=== PATIENT | female | born 1995 | race Caucasian/White ===

== ENCOUNTER 2019-05-05 15:06 | Inpatient (IN) | payer OTHER ==
[2019-05-05 16:23] LABS: Amphetamine Screen,Urine Detected (NotDetected); Barbiturate Screen,Urine Not Detected (NotDetected); Benzodiazepines Screen,Urine Not Detected (NotDetected); Cocaine Screen,Urine Not Detected (NotDetected); Methadone Screen, Urine Not Detected (NotDetected); Opiate Screen,Urine Not Detected (NotDetected); Oxycodone Screen, Urine Not Detected (NotDetected); Phencyclidine Screen,Urine Not Detected (NotDetected); Tricyclic Antidepressant,Urine Not Detected (NotDetected); Urn Cannabinoid Scrn Detected (NotDetected)
--- NOTE | 2019-05-05 16:42 | ED ---
Psych HPI - General Chief Complaint: Psychiatric Symptoms Stated Complaint: Mental Health Time Seen by Provider: 05/05/19 15:32 Source: patient Mode of arrival: ambulatory - History of Present Illness Initial Comments: 23-year-old with history of depression, borderline personality disorder presenting today for chief complaint of suicidal ideation. Patient states that she has had increasing suicidal thoughts since January. Patient states that today was her breaking point and she caught her left forearm and thighs bilaterally. Patient denies ingesting any pills, jerking alcohol or using drugs. Patient states she voluntarily came to the emergency department for suicidal ideation. Patient denies any other plan aside from cutting herself. Patient denies homicidal ideation. Remaining review of systems negative upon arrival patient appears well signs of acute distress. - Related Data Home Medications Medication Instructions Recorded Confirmed No Known Home Medications 05/05/19 05/05/19 Allergies Allergy/AdvReac Type Severity Reaction Status Date / Time No Known Allergies Allergy Verified 05/05/19 17:29 Review of Systems ROS Statement: Those systems with pertinent positive or pertinent negative responses have been documented in the HPI. ROS Other: All systems not noted in ROS Statement are negative. Past Medical History Past Medical History: No Reported History History of Any Multi-Drug Resistant Organisms: None Reported Additional Past Surgical History / Comment(s): abdominal surgery as Past Psychological History: Anxiety, Depression Smoking Status: Current every day smoker Past Alcohol Use History: None Reported Past Drug Use History: Marijuana General Exam - General Exam Comments Initial Comments: General: The patient is awake and alert, in no distress, and does not appear acutely ill. Eye: Pupils are equal, round and reactive to light, extra-ocular movements are intact. No nystagmus. There is normal conjunctiva bilaterally. No signs of icterus. Ears, nose, mouth and throat: There are moist mucous membranes and no oral lesions. Neck: The neck is supple, there is no tenderness or JVD. Cardiovascular: There is a regular rate and rhythm. No murmur, rub or gallop is appreciated. Respiratory: Lungs are clear to auscultation, respirations are non-labored, breath sounds are equal. No wheezes, stridor, rales, or rhonchi. Gastrointestinal: Soft, non-distended, non-tender abdomen without masses or organomegaly noted. There is no rebound or guarding present. Musculoskeletal: Normal ROM, no tenderness. Strength 5/5. Sensation intact. Pulses equal bilaterally 2+. Neurological: A&O x 3. CN II-XII intact, There are no obvious motor or sensory deficits. Coordination appears grossly intact. Speech is normal. Skin: Skin is warm and dry and no rashes. Numerous superficial lesions of the left forearm, upper thighs b/l. Psychiatric: Cooperative, appropriate mood & affect, normal judgment. Limitations: no limitations Course Vital Signs 05/05/19 05/05/19 15:26 16:53 Temperature 98.9 F Pulse Rate 96 Respiratory 18 Rate Blood Pressure 115/67 O2 Sat by Pulse 94 L Oximetry Medical Decision Making - Medical Decision Making 23-year-old female presenting for suicidal ideation, superficial cutting. Patient medically cleared. Patient refused tetanus vaccination seeing she does not vaccinate. Area were cleansed. No abnormal physical exam findings aside from superficial laceration. No evidence of deep cuts. EPS recommended admission. Patient was transferred to the floor in stable condition. - Lab Data Lab Results 05/05/19 05/05/19 05/05/19 Range/Units 15:57 15:57 15:57 Urine Color Yellow Urine Appearance Turbid H (Clear) Urine pH 5.5 (5.0-8.0) Ur Specific [place] 1.029 (1.001-1.035) Urine Protein 1+ H (Negative) Urine Glucose (UA) Trace H (Negative) Urine Ketones 4+ H (Negative) Urine Blood Moderate H (Negative) Urine Nitrite Negative (Negative) Urine Bilirubin Negative (Negative) Urine Urobilinogen 2.0 (<2.0) mg/dL Ur Leukocyte Esterase Small H (Negative) Urine RBC 10 H (0-5) /hpf Urine WBC 10 H (0-5) /hpf Ur Squamous Epith Cells 5 H (0-4) /hpf Amorphous Sediment Few H (None) /hpf Urine Mucus Many H (None) /hpf Urine HCG, Qual Not Detected (Not Detectd) Urine Opiates Screen Not Detected (NotDetected) Ur Oxycodone Screen Not Detected (NotDetected) Urine Methadone Screen Not Detected (NotDetected) Ur Propoxyphene Screen Not Detected (NotDetected) Ur Barbiturates Screen Not Detected (NotDetected) U Tricyclic Antidepress Not Detected (NotDetected) Ur Phencyclidine Scrn Not Detected (NotDetected) Ur Amphetamines Screen Detected H (NotDetected) U Methamphetamines Scrn Not Detected (NotDetected) U Benzodiazepines Scrn Not Detected (NotDetected) Urine Cocaine Screen Not Detected (NotDetected) U Marijuana (THC) Screen Detected H (NotDetected) Disposition Clinical Impression: Suicidal ideation, Depression Disposition: ADMITTED IP TO THIS [facility] Condition: Serious Is patient prescribed a controlled substance at d/c from ED?: No Time of Disposition: 00:01 Decision to Admit Reason: Admit from EC Decision Date: 05/06/19 Decision Time: 16:00
[2019-05-05 17:06] LABS: Amorphous Sediment,Urine Few /hpf; Appearance,Urine Turbid (Clear); Bilirubin,Urine Negative (Negative); Blood,Urine Moderate (Negative); Color,Urine Yellow; Glucose,Urine (UA) Trace (Negative); Ketones,Urine 4+ (Negative); Leukocyte Esterase,Urine Small (Negative); Mucus,Urine Many /hpf; Nitrite,Urine Negative (Negative); PH, Urine 5.5 (5.0-8.0); Protein,Urine 1+ (Negative); RBC,Urine 10 /hpf (0-5); Specific Gravity,Urine 1.029 (1.001-1.035); Squamous Epithelial Cell,Urine 5 /hpf (0-4); WBC,Urine 10 /hpf (0-5)
[2019-05-05] MEDS ORDERED: LORazepam 1 MG TAB PO PRN (18:00)
[2019-05-05] MEDS ORDERED: MAG HYDROX/AL HYDROX/SIMETH 30 ML CUP PO PRN (18:00)
[2019-05-05] MEDS ORDERED: MAGNESIUM HYDROXIDE 2,400 MG/10 ML CUP PO PRN (18:00)
[2019-05-05] MEDS ORDERED: ACETAMINOPHEN TAB 325 MG TAB PO PRN (18:00)
[2019-05-05] MEDS ORDERED: NICOTINE 14MG/24HR PATCH TRANSDERM STA (20:29)
[2019-05-06] MEDS: NICOTINE 14MG/24HR PATCH TRANSDERM SCH (08:26)
[2019-05-06 08:41] LABS: ALT 15 U/L (9-52); AST 12 U/L (14-36); African American GFR (CKD) >90 (>60 ml/min/1.73 sqM); Albumin 4.5 g/dL (3.5-5.0); Alkaline Phosphatase 62 U/L (38-126); Anion Gap 12 mmol/L; Blood Urea Nitrogen 12 mg/dL (7-17); Calcium 9.5 mg/dL (8.4-10.2); Carbon Dioxide 25 mmol/L (22-30); Chloride 105 mmol/L (98-107); Cholesterol 125 mg/dL (<200); Glucose 109 mg/dL (74-99); HDL Cholesterol 52 mg/dL (40-60); LDL Cholesterol,Calculated 63 mg/dL (0-99); Potassium 3.4 mmol/L (3.5-5.1); Sodium 142 mmol/L (137-145); Total Bilirubin 0.8 mg/dL (0.2-1.3); Total Protein 7.2 g/dL (6.3-8.2); Triglycerides 50 mg/dL (<150)
[2019-05-06 08:52] LABS: Basophils # (A) 0.1 k/uL (0-0.2); Basophils % (A) 1 %; Eosinophils # (A) 0.5 k/uL (0-0.7); Eosinophils % (A) 5 %; HCT 41.7 % (34.0-46.0); HGB 13.1 gm/dL (11.4-16.0); Lymphocytes # (A) 2.3 k/uL (1.0-4.8); Lymphocytes % (A) 23 %; MCH 26.7 pg (25.0-35.0); MCHC 31.4 g/dL (31.0-37.0); MCV 85.1 fL (80.0-100.0); Mean Platelet Volume 7.2; Monocytes # (A) 0.4 k/uL (0-1.0); Monocytes % (A) 4 %; Neutrophils # (A) 6.7 k/uL (1.3-7.7); Neutrophils % (A) 67 %; Platelet Count 273 k/uL (150-450); RDW 14.7 % (11.5-15.5); WBC 10.1 k/uL (3.8-10.6)
[2019-05-06] MEDS: ARIPiprazole 5 MG TAB PO SCH (10:25)
[2019-05-06] MEDS: FLUoxetine HCL 20 MG CAP PO SCH (10:25)
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
--- NOTE | 2019-05-06 19:45 | P.MDCNMH ---
History of Present Illness H&P Date: 05/06/19 Chief Complaint: suicide ideation 23 year old female with history of endometriosis, depression, borderline personality Patient presented to the hospital due to suicidal ideation. Patient has self- inflicted wounds superficial though, over bilateral thighs and left forearm. As she was planning to cut herself. Otherwise patient denies any chest pain trouble breathing coughing shortness of breath fevers or chills denies any abdominal pain nausea or vomiting at this time. She admits to smoking cigarettes and medical marijuana but denies any other drugs. However she tested positive for amphetamine in the urine. Review of Systems Pertinent positives as noted in HPI. All other systems were reviewed and are negative Past Medical History Past Medical History: No Reported History History of Any Multi-Drug Resistant Organisms: None Reported Additional Past Surgical History / Comment(s): abdominal surgery as Past Psychological History: Anxiety, Depression Smoking Status: Current every day smoker Past Alcohol Use History: None Reported Past Drug Use History: Marijuana Medications and Allergies Home Medications Medication Instructions Recorded Confirmed Type No Known Home Medications 05/05/19 05/05/19 History Allergies Allergy/AdvReac Type Severity Reaction Status Date / Time No Known Allergies Allergy Verified 05/05/19 17:29 Physical Exam Vitals: Vital Signs Temp Pulse Pulse Resp BP BP Pulse Ox 05/06/19 06:23 98.5 F 83 16 111/72 05/05/19 18:32 97.8 F 78 16 105/71 99 05/05/19 16:53 115/67 05/05/19 15:26 98.9 F 96 18 94 L Intake and Output 05/05/19 05/06/19 05/06/19 22:59 06:59 14:59 Other: Weight 52.189 kg Constitutional: No acute distress, conversant, pleasant Eyes: Anicteric sclerae, moist conjunctiva, no lid-lag Pupils equal round reactive to light ENMT: NC/AT Oropharynx clear, no erythema, exudates Neck: Supple, FROM, no masses, or JVD No carotid bruits No thyromegaly Lungs: Clear to auscultation Clear to percussion Normal respiratory effort, no accessory muscle use Cardiovascular: Heart regular in rate and rhythm, No murmurs, gallops, or rubs No peripheral edema Abdominal: Soft Nontender, no guarding, rebound or rigidity Abdomen moving with respiration Normoactive bowel sounds No hepatomegaly, No splenomegaly No palpable mass No abdominal wall hernia noted Skin: Normal temperature, tone, texture, turgor No induration No subcutaneous nodules No rash, lesions multiple superficial abrasions as below Extremities: left forearm with superficial abrasions bilateral thighs with superficial abrasions No digital cyanosis No clubbing Pedal pulses intact and symmetrical Radial pulses intact and symmetrical No calf tenderness Psychiatric: Alert and oriented to person, place and time depressed affect fair judgment Neuro Muscles Strength 5/5 in all 4 extremities Sensation to light touch grossly present throughout Cranial nerves II-XII grossly intact No focal sensory deficits Lymphatics: no palpable cervical or supraclavicular , or inguinal lymph nodes Cranial Nerve Examination - Cranial Nerves Cranial Nerve II- Optic: Intact Cranial Nerve III- Oculomotor: Intact Cranial Nerve IV- Trochlear: Intact Cranial Nerve V- Trigeminal: Intact Cranial Nerve - Abducens: Intact Cranial Nerve VII- Facial: Intact Cranial Nerve VIII- Auditory: Intact Cranial Nerve IX- Glossopharyngeal: Intact Cranial Nerve X- Vagus: Intact Cranial Nerve XI- Accessory: Intact Cranial Nerve XII- Hypoglossal: Intact Results CBC & Chem 7: 05/06/19 08:14 05/06/19 08:14 Labs: Abnormal Lab Results - Last 24 Hours (Table) 05/05/19 05/05/19 Range/Units 15:57 15:57 Urine Appearance Turbid H (Clear) Urine Protein 1+ H (Negative) Urine Glucose (UA) Trace H (Negative) Urine Ketones 4+ H (Negative) Urine Blood Moderate H (Negative) Ur Leukocyte Esterase Small H (Negative) Urine RBC 10 H (0-5) /hpf Urine WBC 10 H (0-5) /hpf Ur Squamous Epith Cells 5 H (0-4) /hpf Amorphous Sediment Few H (None) /hpf Urine Mucus Many H (None) /hpf Ur Amphetamines Screen Detected H (NotDetected) U Marijuana (THC) Screen Detected H (NotDetected) Assessment and Plan Assessment: 23 year old female with history of borderline personality, anxiety, and depression , admitted due to suicidal ideation, medicine consulted for medical evaluation , patient has no active medical issues at this time. Plan: depression with suicidal ideation management per psych polysubstance abuse amphetamine marijuana smoking tobacco superficial abrasions local wound care denies any alcohol abuse low risk for DVT , patient ambulatory Thank you for allowing us to participate in the care of this patient. We will follow peripherally. Do not hesitate to contact us with questions. Someone can be reached from the [facility] hospitalist group at all hours of the day at [phone].
[2019-05-07] MEDS: NICOTINE 14MG/24HR PATCH TRANSDERM SCH (09:11)
[2019-05-07] MEDS: ARIPiprazole 5 MG TAB PO SCH (09:12)
[2019-05-07] MEDS: FLUoxetine HCL 20 MG CAP PO SCH (09:12)
[2019-05-07 10:38] LABS: Hemoglobin A1C 5.4 % (4.0-6.0)
--- NOTE | 2019-05-07 11:33 | P.PN ---
Progress Note - Text Progress Note Date: 05/07/19 Interval History: Patient is a 23-year-old female who was seen today. She was admitted due to cutting and suicidal ideation. She states that she was cutting because of feeling angry and did punish herself. She states that she had been in counseling in October of this year at [facility] but was religiously based and she did not like it. She states that she's been feeling increasingly depressed with decreased motivation, not caring for her activities of daily living, sleeping too much and has no energy. She states that she was not taking care of her [id number] baby and was leaving it up to her boyfriend to do all of the care. She states that she currently is no longer feeling suicidal or have any urges to cut today and states that her thinking has improved. Mental Status: Appearance/Attitude: Patient is neatly and appropriately dressed, makes eye contact and was cooperative. Behavior: Patient does not display any psychomotor agitation or retardation. Speech/Language: Patient's speech is spontaneous of normal volume and rhythm and she is coherent Thought Process: Patient is goal-directed there is no evidence of loose association or flight of ideas Thought Content: Patient denies any auditory or visual hallucinations and no delusions or paranoid ideation or elicited. Patient states that her thinking is much clearer, she slept about 5 hours last night and her appetite has improved. She states that she is feeling a little more positive about things and reports no side effects from the medication Suicidal/Homicidal Ideation: Patient denies any current suicidal or homicidal ideation Sensorium/Cognition: Patient is alert and oriented to person, place, and time and her recent and remote memory grossly intact Mood/Affect: Patient's mood is slightly depressed her affect is slightly blunted Insight/Judgment: Patient's insight and judgment are fair Assessment: Patient reports that she had been in counseling but was religiously based and she stopped in October of this year. Patient states that she cuts because she is angry to punish herself. She states that she had been feeling increasingly depressed at home and not caring for her activities of daily living. She states that she currently is no longer feeling suicidal or having any urges to cut. She slept for about 5 hours last night and has been attending groups and activities. She states that her thinking has improved and she is feeling less depressed. Plan: Patient will continue on Prozac 20 mg and Abilify 5 mg daily to target her mood. Patient continues to require hospitalization to further stabilize her mood.
[2019-05-08 07:03] VITALS: RESP 16
[2019-05-08] MEDS: NICOTINE 14MG/24HR PATCH TRANSDERM SCH (09:13)
[2019-05-08] MEDS: ARIPiprazole 5 MG TAB PO SCH (09:14)
[2019-05-08] MEDS: FLUoxetine HCL 20 MG CAP PO SCH (09:14)
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
[2019-05-09] MEDS: FLUoxetine HCL 20 MG CAP PO SCH (08:37)
[2019-05-09] MEDS: NICOTINE 14MG/24HR PATCH TRANSDERM SCH (08:37)
[2019-05-09] MEDS: ARIPiprazole 5 MG TAB PO SCH (08:37)
[2019-05-09] MEDS: hydrOXYzine PAMOATE 25 MG CAP PO PRN (09:36)
--- NOTE | 2019-05-09 11:50 | P.PN ---
Progress Note - Text Progress Note Date: 05/09/19 Interval History: Patient is a 23-year-old female who was seen today and she reports being bothered by one of the other patients on the unit. She sought out staff and states that they have assisted her. Patient requested something for anxiety because she was quite upset. Patient and I discussed her relationship with the father of her child and the issues that they have, they broke up he is living with his parents and the child and had had another relationship after they broke up in January. Patient and I discussed her feelings regarding the of her father, her partner discussing confidential issues with his family, posting things on Facebook. Patient reports no side effects from the medication and feels that they have been effective for her. Mental Status: Appearance/Attitude: Patient is neatly and appropriately dressed, makes eye contact and was cooperative Behavior: Patient does not display any psychomotor agitation or retardation. Speech/Language: Patient's speech is spontaneous of normal volume and rhythm and she is coherent Thought Process: Patient is goal-directed there is no evidence of loose association or flight of ideas Thought Content: Patient denies any auditory or visual hallucinations and no delusions or paranoid ideation or elicited. Patient states that she was upset earlier today and is quite anxious regarding interactions with another peer on the unit. Patient discussed her concerns about her relationship with her boyfriend due to his discussing confidential information with his family and hers, posting on Facebook's text that she had sent to him. Patient states that they have discussed counseling to improve their relationship, he blames her for his having had another relationship after they in January. Patient states that her sleep is good and she is eating well. Suicidal/Homicidal Ideation: Patient denies any current suicidal or homicidal ideation Sensorium/Cognition: Patient is alert and oriented to person, place, and time and her recent and remote memory are grossly intact Mood/Affect: Patient's mood is pleasant, slightly anxious this morning and her affect is appropriate Insight/Judgment: Patient's insight and judgment are fair Assessment: Patient reports getting upset with another patient who is intrusive, she states that she somewhat anxious this morning. She denied a long discussion regarding traumas from her childhood, the of her father as well as issues with her partner. Patient states that she will be returning home to live on her own and that her partner lives with his parents and their child. Patient discussed returning to work. She reports no side effects from the medication and states that she's been attending groups and activities. Patient reports that she is doing much better, no longer feeling as depressed, has more energy is getting up in the morning and has motivation to do things. Plan: Patient will continue on Prozac 20 mg in the morning and Abilify 5 mg daily to target her depressive symptoms and will begin Vistaril 25 mg 3 times a day as needed for anxiety. Patient and I discussed discharge tomorrow and she is agreeable to this plan and is interested in outpatient counseling and follow- up care after her release.
[2019-05-09 13:59] VITALS: BMI 22.4
[2019-05-10 06:20] VITALS: BP 107/75; PULSE 75; TEMP 97.8
[2019-05-10] MEDS: FLUoxetine HCL 20 MG CAP PO SCH (08:07)
[2019-05-10] MEDS: ARIPiprazole 5 MG TAB PO SCH (08:07)
[2019-05-10] MEDS: NICOTINE 14MG/24HR PATCH TRANSDERM SCH (09:00)
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
[2019-05-10] MEDS: hydrOXYzine PAMOATE 25 MG CAP PO PRN (18:32)
== END 2019-05-10 19:45 | disposition home or self-care (01) | DRG 885 ==
LOC: EC 15:06 → 3MHU 17:58
PROVIDERS: ADMIT Psychiatry & Neurology Psychiatry; ATTEND Psychiatry & Neurology Psychiatry
DX: F33.2 Major depressive disorder, recurrent severe without psychotic features (principal); F43.10 Post-traumatic stress disorder, unspecified; F12.20 Cannabis dependence, uncomplicated; F41.0 Panic disorder [episodic paroxysmal anxiety]; F60.3 Borderline personality disorder; Z62.810 Personal history of physical and sexual abuse in childhood; F17.200 Nicotine dependence, unspecified, uncomplicated; Z28.21 Immunization not carried out because of patient refusal; Z91.410 Personal history of adult physical and sexual abuse
CPT/HCPCS: 80053; 80061; 80306; 81001; 81025; 82075; 83036; 84443; 85025; 99285

== ENCOUNTER 2019-11-23 17:36 | Inpatient (IN) | payer BC, MEDICAID, OTHER ==
[2019-11-23 18:34] LABS: Basophils # (A) 0.1 k/uL (0-0.2); Basophils % (A) 1 %; Eosinophils # (A) 0.2 k/uL (0-0.7); Eosinophils % (A) 3 %; HGB 13.5 gm/dL (11.4-16.0); Lymphocytes # (A) 1.9 k/uL (1.0-4.8); Lymphocytes % (A) 23 %; MCH 28.3 pg (25.0-35.0); MCV 85.8 fL (80.0-100.0); Monocytes # (A) 0.3 k/uL (0-1.0); Monocytes % (A) 4 %; Neutrophils # (A) 5.6 k/uL (1.3-7.7); Neutrophils % (A) 68 %; Platelet Count 269 k/uL (150-450); RBC 4.78 m/uL (3.80-5.40); RDW 13.2 % (11.5-15.5); WBC 8.3 k/uL (3.8-10.6)
[2019-11-23 18:43] LABS: ALT 12 U/L (4-34); AST 17 U/L (14-36); Acetaminophen <10.0 ug/mL; African American GFR (CKD) >90 (>60 ml/min/1.73 sqM); Albumin 4.5 g/dL (3.5-5.0); Alcohol <10 mg/dL; Alkaline Phosphatase 66 U/L (38-126); Anion Gap 11 mmol/L; Blood Urea Nitrogen 8 mg/dL (7-17); Calcium 9.4 mg/dL (8.4-10.2); Carbon Dioxide 22 mmol/L (22-30); Chloride 107 mmol/L (98-107); Glucose 102 mg/dL (74-99); Non-African American GFR(CKD) >90 (>60 ml/min/1.73 sqM); Salicylate <1.0 mg/dL; Sodium 140 mmol/L (137-145); Total Bilirubin 0.8 mg/dL (0.2-1.3); Total Protein 7.5 g/dL (6.3-8.2)
[2019-11-23 18:56] LABS: Amphetamine Screen,Urine Not Detected (NotDetected); Barbiturate Screen,Urine Not Detected (NotDetected); Benzodiazepines Screen,Urine Not Detected (NotDetected); Cocaine Screen,Urine Detected (NotDetected); Methadone Screen, Urine Not Detected (NotDetected); Opiate Screen,Urine Not Detected (NotDetected); Oxycodone Screen, Urine Not Detected (NotDetected); Phencyclidine Screen,Urine Not Detected (NotDetected); Tricyclic Antidepressant,Urine Not Detected (NotDetected); Urn Cannabinoid Scrn Detected (NotDetected)
--- NOTE | 2019-11-23 19:06 | ED ---
Overdose HPI - General Chief Complaint: Overdose Stated Complaint: Mental health Time Seen by Provider: 11/23/19 17:45 Source: patient, police, EMS Mode of arrival: EMS Limitations: no limitations - History of Present Illness Initial Comments: Patient presents after an overdose today. She believes she was trying to harm herself. She has no chest or belly or back pain. She had some nausea and vomiting after the overdose, but at this time has no symptoms. She has no weakness, headache, lightheadedness or dizziness. - Related Data Previous Rx's Medication Instructions Recorded ARIPiprazole [Abilify] 5 mg PO DAILY #14 tab 05/10/19 FLUoxetine HCL [PROzac] 20 mg PO DAILY #14 cap 05/10/19 hydrOXYzine PAMOATE [Vistaril] 25 mg PO BID PRN #10 cap 05/10/19 Allergies Allergy/AdvReac Type Severity Reaction Status Date / Time No Known Allergies Allergy Verified 11/23/19 17:42 Review of Systems ROS Statement: Those systems with pertinent positive or pertinent negative responses have been documented in the HPI. ROS Other: All systems not noted in ROS Statement are negative. Past Medical History Past Medical History: Asthma History of Any Multi-Drug Resistant Organisms: None Reported Additional Past Surgical History / Comment(s): abdominal surgery as Past Psychological History: Anxiety, Depression Smoking Status: Current every day smoker Past Alcohol Use History: None Reported Past Drug Use History: Marijuana General Exam Limitations: no limitations General appearance: alert, in no apparent distress Head exam: Present: atraumatic, normocephalic, normal inspection Eye exam: Present: normal appearance, PERRL, EOMI. Absent: scleral icterus, conjunctival injection, periorbital swelling ENT exam: Present: normal exam, mucous membranes moist Neck exam: Present: normal inspection. Absent: tenderness, meningismus, lymphadenopathy Respiratory exam: Present: normal lung sounds bilaterally. Absent: respiratory distress, wheezes, rales, rhonchi, stridor Cardiovascular Exam: Present: regular rate, normal rhythm, normal heart sounds. Absent: systolic murmur, diastolic murmur, rubs, gallop, clicks GI/Abdominal exam: Present: soft, normal bowel sounds. Absent: distended, tenderness, guarding, rebound, rigid Extremities exam: Present: normal inspection, full ROM, normal capillary refill. Absent: tenderness, pedal edema, joint swelling, calf tenderness Back exam: Present: normal inspection Neurological exam: Present: alert, oriented X3, CN II-XII intact Psychiatric exam: Present: normal affect, normal mood Skin exam: Present: warm, dry, intact, normal color. Absent: rash Course Vital Signs 11/23/19 17:40 Temperature 98.4 F Pulse Rate 112 H Respiratory 20 Rate Blood Pressure 131/70 O2 Sat by Pulse 98 Oximetry Medical Decision Making - Medical Decision Making Patient presents after an intentional overdose, with the intent for self-harm. Patient is medically clear. She will be admitted to psychiatry. - Lab Data Result diagrams: 11/23/19 17:45 11/23/19 17:45 Lab Results 11/23/19 11/23/19 11/23/19 Range/Units 17:45 17:45 17:45 WBC 8.3 (3.8-10.6) k/uL RBC 4.78 (3.80-5.40) m/uL Hgb 13.5 (11.4-16.0) gm/dL Hct 41.0 (34.0-46.0) % MCV 85.8 (80.0-100.0) fL MCH 28.3 (25.0-35.0) pg MCHC 33.0 (31.0-37.0) g/dL RDW 13.2 (11.5-15.5) % Plt Count 269 (150-450) k/uL Neutrophils % 68 % Lymphocytes % 23 % Monocytes % 4 % Eosinophils % 3 % Basophils % 1 % Neutrophils # 5.6 (1.3-7.7) k/uL Lymphocytes # 1.9 (1.0-4.8) k/uL Monocytes # 0.3 (0-1.0) k/uL Eosinophils # 0.2 (0-0.7) k/uL Basophils # 0.1 (0-0.2) k/uL Sodium 140 (137-145) mmol/L Potassium 4.0 (3.5-5.1) mmol/L Chloride 107 (98-107) mmol/L Carbon Dioxide 22 (22-30) mmol/L Anion Gap 11 mmol/L BUN 8 (7-17) mg/dL Creatinine 0.68 (0.52-1.04) mg/dL Est GFR (CKD-EPI)AfAm >90 (>60 ml/min/1.73 sqM) Est GFR (CKD-EPI)NonAf >90 (>60 ml/min/1.73 sqM) Glucose 102 H (74-99) mg/dL Calcium 9.4 (8.4-10.2) mg/dL Total Bilirubin 0.8 (0.2-1.3) mg/dL AST 17 (14-36) U/L ALT 12 (4-34) U/L Alkaline Phosphatase 66 (38-126) U/L Total Protein 7.5 (6.3-8.2) g/dL Albumin 4.5 (3.5-5.0) g/dL Urine HCG, Qual (Not Detectd) Salicylates <1.0 mg/dL Urine Opiates Screen Not Detected (NotDetected) Ur Oxycodone Screen Not Detected (NotDetected) Urine Methadone Screen Not Detected (NotDetected) Ur Propoxyphene Screen Not Detected (NotDetected) Acetaminophen <10.0 ug/mL Ur Barbiturates Screen Not Detected (NotDetected) U Tricyclic Antidepress Not Detected (NotDetected) Ur Phencyclidine Scrn Not Detected (NotDetected) Ur Amphetamines Screen Not Detected (NotDetected) U Methamphetamines Scrn Not Detected (NotDetected) U Benzodiazepines Scrn Not Detected (NotDetected) Urine Cocaine Screen Detected H (NotDetected) U Marijuana (THC) Screen Detected H (NotDetected) Serum Alcohol <10 mg/dL 11/23/19 Range/Units 17:45 WBC (3.8-10.6) k/uL RBC (3.80-5.40) m/uL Hgb (11.4-16.0) gm/dL Hct (34.0-46.0) % MCV (80.0-100.0) fL MCH (25.0-35.0) pg MCHC (31.0-37.0) g/dL RDW (11.5-15.5) % Plt Count (150-450) k/uL Neutrophils % % Lymphocytes % % Monocytes % % Eosinophils % % Basophils % % Neutrophils # (1.3-7.7) k/uL Lymphocytes # (1.0-4.8) k/uL Monocytes # (0-1.0) k/uL Eosinophils # (0-0.7) k/uL Basophils # (0-0.2) k/uL Sodium (137-145) mmol/L Potassium (3.5-5.1) mmol/L Chloride (98-107) mmol/L Carbon Dioxide (22-30) mmol/L Anion Gap mmol/L BUN (7-17) mg/dL Creatinine (0.52-1.04) mg/dL Est GFR (CKD-EPI)AfAm (>60 ml/min/1.73 sqM) Est GFR (CKD-EPI)NonAf (>60 ml/min/1.73 sqM) Glucose (74-99) mg/dL Calcium (8.4-10.2) mg/dL Total Bilirubin (0.2-1.3) mg/dL AST (14-36) U/L ALT (4-34) U/L Alkaline Phosphatase (38-126) U/L Total Protein (6.3-8.2) g/dL Albumin (3.5-5.0) g/dL Urine HCG, Qual Not Detected (Not Detectd) Salicylates mg/dL Urine Opiates Screen (NotDetected) Ur Oxycodone Screen (NotDetected) Urine Methadone Screen (NotDetected) Ur Propoxyphene Screen (NotDetected) Acetaminophen ug/mL Ur Barbiturates Screen (NotDetected) U Tricyclic Antidepress (NotDetected) Ur Phencyclidine Scrn (NotDetected) Ur Amphetamines Screen (NotDetected) U Methamphetamines Scrn (NotDetected) U Benzodiazepines Scrn (NotDetected) Urine Cocaine Screen (NotDetected) U Marijuana (THC) Screen (NotDetected) Serum Alcohol mg/dL 11/23/19 19:05 twelve-lead EKG shows ventricular rate 77 bpm, normal NC interval and QRS complexes, normal QT and QTC, no ST elevation or depression, interpreted by me as normal sinus rhythm. Disposition Clinical Impression: Drug overdose Disposition: TRANSFER TO PSYCH HOSP/UNIT Condition: Fair Referrals: Lisbeth Olivares MD [Primary Care Provider] - 1-2 days
[2019-11-23] MEDS ORDERED: MAG HYDROX/AL HYDROX/SIMETH 30 ML CUP PO PRN (19:54)
[2019-11-23] MEDS ORDERED: MAGNESIUM HYDROXIDE 2,400 MG/10 ML CUP PO PRN (19:54)
[2019-11-23] MEDS ORDERED: ZIPRASIDONE 20 MG VIAL IM PRN (19:54)
[2019-11-23] MEDS ORDERED: ACETAMINOPHEN TAB 325 MG TAB PO PRN (19:54)
[2019-11-23] MEDS: LORazepam 1 MG TAB PO SCH (22:37)
--- NOTE | 2019-11-23 23:02 | P.HPMEDMHU ---
History of Present Illness H&P Date: 11/23/19 Chief Complaint: MHU HPI The patient is a 24-year-old female with a past medical history of asthma and recurrent smoker who is admitted to the mental health unit. Apparently the patient was brought here by local PD for intentional overdosing with Vistaril approximately 5 tabs unknown dose and Abilify approximately 7 tabs unknown dose. Despite EPS records suggesting that the patient was suicidal, she is denying trying to hurt herself. The patient is regretful and saying that she took the medications in attempts to get her emotions under control. The patient denies any wheezing or shortness of breath she does report a smoker's cough, she thinks that her breathing is at baseline and declines suggestion of inhaler. The patient's UDS was positive for cocaine and THC. The patient denies any somatic complaints Review of Systems Pertinent positives per HPI all other review of systems otherwise negative Past Medical History Past Medical History: Asthma History of Any Multi-Drug Resistant Organisms: None Reported Additional Past Surgical History / Comment(s): abdominal surgery as infant Past Psychological History: Anxiety, Depression Smoking Status: Current every day smoker Past Alcohol Use History: None Reported Past Drug Use History: Marijuana Medications and Allergies Home Medications Medication Instructions Recorded Confirmed Type No Known Home Medications 11/23/19 11/23/19 History Allergies Allergy/AdvReac Type Severity Reaction Status Date / Time No Known Allergies Allergy Verified 11/23/19 19:18 Physical Exam Vitals: Vital Signs Temp Pulse Resp BP Pulse Ox 11/23/19 20:04 97.9 F 93 20 122/74 98 11/23/19 19:00 98.9 F 73 17 113/83 97 11/23/19 17:40 98.4 F 112 H 20 131/70 98 Intake and Output 11/23/19 11/23/19 11/23/19 06:59 14:59 22:59 Other: Weight 54.431 kg Constitutional: No acute distress, conversant, pleasant Eyes: Anicteric sclerae, moist conjunctiva, no lid-lag, PERRLA ENMT: NC/AT,Oropharynx clear, no erythema, exudates Neck:Supple, FROM, no masses, or JVD, No carotid bruits; No thyromegaly Lungs: Clear to auscultation, Clear to percussion, Normal respiratory effort, no accessory muscle use Cardiovascular: Heart regular in rate and rhythm, No murmurs, gallops, or rubs no peripheral edema Abdominal: Soft Nontender, nom distended, no guarding, no rebound or rigidity, Normoactive bowel sounds No hepatomegaly, No splenomegaly, No palpable mass No abdominal wall hernia noted Skin: Normal temperature, tone, texture, turgor, No induration No subcutaneous nodules, No rash, lesions, No ulcers Extremities:No digital cyanosis No clubbing, Pedal pulses intact and symmetrical Radial pulses intact and symmetrical Normal gait and station, No calf tenderness Psychiatric: Alert and oriented to person, place and time, Appropriate affect Intact judgement Neuro: Muscles Strength 5/5 in all 4 extremities, Sensation to light touch grossly present throughout, Cranial nerves II-XII grossly intact. No focal sensory deficits - Constitutional General appearance: no acute distress - EENT Eyes: EOMI - Neck Neck: no lymphadenopathy - Gastrointestinal General gastrointestinal: no organomegaly, soft, no tenderness Cranial Nerve Examination - Cranial Nerves Cranial Nerve II- Optic: Intact Cranial Nerve III- Oculomotor: Intact Cranial Nerve IV- Trochlear: Intact Cranial Nerve V- Trigeminal: Intact Cranial Nerve - Abducens: Intact Cranial Nerve VII- Facial: Intact Cranial Nerve VIII- Auditory: Intact Cranial Nerve IX- Glossopharyngeal: Intact Cranial Nerve X- Vagus: Intact Cranial Nerve XI- Accessory: Intact Cranial Nerve XII- Hypoglossal: Intact Results CBC & Chem 7: 11/23/19 17:45 11/23/19 17:45 Labs: Abnormal Lab Results - Last 24 Hours (Table) 11/23/19 11/23/19 Range/Units 17:45 17:45 Glucose 102 H (74-99) mg/dL Urine Cocaine Screen Detected H (NotDetected) U Marijuana (THC) Screen Detected H (NotDetected) Assessment and Plan Assessment: Asthma without exacerbation Depression and anxiety Suicidal ideation Attempted overdose Plan: Patient is admitted to the acute inpatient psychiatry team will defer to them regarding ongoing psychotropic therapy and coordination with cognitive behavioral therapy. Patient is medically stable and no acute asthma exacerbation has no complaints. We'll plan to sign off today. For further questions please to not hesitate contact the sound inpatient team.
[2019-11-24] MEDS: LORazepam 1 MG TAB PO SCH (09:37)
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
[2019-11-24] MEDS: DULoxetine HCL 30 MG CAPSULE.DR PO SCH (12:20)
[2019-11-25] MEDS: DULoxetine HCL 30 MG CAPSULE.DR PO SCH (09:15)
--- NOTE | 2019-11-25 13:42 | P.PN ---
Progress Note - Text Interval history: The patient is found in her room she follows me to an interview room. She indicates that she was acutely nauseous during lunch and vomited. She thinks is related to an ongoing abdominal issue that she has had. We discussed that it could be related to the Cymbalta as an initial side effect. She is willing to continue the medication and give it more time. She did have a visit from a friend last evening. She has not yet spoken her boyfriend. She states she doesn't know sure where she is going from here. She still has some hopelessness thinking. Sleep is stable. Mental status exam: The patient is alert she is dressed in her own clothing eye contact is appropriate speech is fluent spontaneous nonpressured. She has appropriate eye contact. She endorses a mood that is still depressed she has some anxiety. She reports no acute suicidal ideation as she feels safe in the hospital. She reports no homicidal ideation intent or plan. There is no report or evidence of psychosis. She does not appear hypomanic or manic. She demonstrates no verbal or physical aggressiveness insight and judgment grossly i ntact. She remains oriented to person place and date. Plan: The patient will continue on the Cymbalta we will monitor for any ongoing nausea. If that persists we will consider change in the medication. She is encouraged to continue participating in the milieu. Vital signs reviewed.
[2019-11-25] MEDS: LORazepam 1 MG TAB PO PRN (21:09)
[2019-11-26] MEDS: DULoxetine HCL 30 MG CAPSULE.DR PO SCH (12:15)
--- NOTE | 2019-11-26 13:01 | P.PN ---
Progress Note - Text Progress Note Date: 11/26/19 Interval History: Patient was seen wandering the hallways and was agreeable to speak to headline writer in the office. Patient states that her nausea has been improving and claims that she is able to tolerate food now. She states that the medication has been helping her with her mood and also the neuropathic pain that she was experiencing. Patient claims that she still feels mildly depressed however it is gradually improving. She states that she is overwhelmed with multiple stressors prior to coming into the hospital. She spoke about her relationship with her ex-boyfriend and also her home situation. She states that she's been going to groups to work on her coping skills and also has been having fair energy throughout the day. At this time patient denies any suicidal or homical ideations, intent or plan. Patient denies any auditory, visual hallucinations and denies any paranoia or delusions. Patient denies any side effects from the medications and has been compliant with meds. Patient states that she slept throughout the night with no issues. Mental Status Exam: General Appearance: Patient appears to be stated age is alert, directable, and attempts to cooperate. Mildly improved hygiene. Behavior: Patient is calmly seated without any agitated behavior. Speech: Patient's speech is fluent and nonpressured. Mood/Affect: Mood is improving mildly, affect is congruent and constricted. Suicidality/Homicidality: Patient denies having any suicidal or homicidal ideation intent or plan. Perceptions: Patient denies any visual hallucinations and denies any auditory hallucinations Though content/process: There is no evidence of any delusional thought content and thought process is linear and goal-directed. Focused on her stressors, catastrophizing. Memory and concentration: AOX3, grossly intact for the purposes of this session Judgment and insight: Improving mildly. Assessment Major depressive disorder, recurrent, severe without psychotic features rule out bipolar depression Cocaine abuse Cannabis abuse Plan: -Patient continues to meet criteria for inpatient psychiatric admission for symptom stabilization and safety. Patient has signed adult voluntary form and medication consent and was placed in patient's chart. -Medications: Will increase Cymbalta to 60 mg daily for depression/neuropathic pain. We'll continue to hold off on mood stabilizer such as Lamictal. -When necessary Ativan for agitation/aggression. -NRT -not need this patient does not smoke. -SW on board for discharge planning. Patient will likely return back to her home upon discharge and being psychiatrically stable. Likely discharge in 1-2 days.
[2019-11-26] MEDS: LORazepam 1 MG TAB PO PRN (15:17)
[2019-11-27] MEDS: DULoxetine HCL 60 MG CAPSULE.DR PO SCH (08:40)
[2019-11-27] MEDS ORDERED: LORazepam 0.5 MG TAB PO PRN (10:35)
[2019-11-27] MEDS ORDERED: MELATONIN 3 MG TABLET PO PRN (10:37)
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
[2019-11-28 06:53] VITALS: BP 148/78; PULSE 109; RESP 17; TEMP 98.4
[2019-11-28] MEDS: DULoxetine HCL 60 MG CAPSULE.DR PO SCH (09:35)
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
== END 2019-11-28 13:03 | disposition home or self-care (01) | DRG 885 ==
LOC: EC 17:36 → 3MHU 19:51
PROVIDERS: ADMIT Psychiatry & Neurology Psychiatry; ATTEND Psychiatry & Neurology Psychiatry
DX: F33.2 Major depressive disorder, recurrent severe without psychotic features (principal); F43.10 Post-traumatic stress disorder, unspecified; F60.3 Borderline personality disorder; J45.909 Unspecified asthma, uncomplicated; T43.592A Poisoning by other antipsychotics and neuroleptics, intentional self-harm, initial encounter; F12.10 Cannabis abuse, uncomplicated; F14.10 Cocaine abuse, uncomplicated; F17.210 Nicotine dependence, cigarettes, uncomplicated; Z79.899 Other long term (current) drug therapy; Z91.5 Personal history of self-harm; Z81.1 Family history of alcohol abuse and dependence; Z81.3 Family history of other psychoactive substance abuse and dependence
CPT/HCPCS: 36415; 80053; 80061; 80306; 80320; 80329; 81025; 83036; 83520; 84443; 85025; 93005; 99285

== ENCOUNTER 2021-02-01 11:40 | Emergency (ER) | payer MEDICAID, OTHER ==
[2021-02-01 11:44] VITALS: TEMP 98.5
[2021-02-01] MEDS ORDERED: PENICILLIN VK 500MG STARTER 4 TAB BTL PO STA (12:34)
--- NOTE | 2021-02-01 12:35 | ED ---
ENT HPI - General Chief complaint: ENT Stated complaint: dental, ear pain Time Seen by Provider: 02/01/21 12:08 Source: patient, RN notes reviewed Mode of arrival: ambulatory Limitations: no limitations - History of Present Illness Initial comments: 25-year-old female presents emergency Department chief complaint of abdominal pain. Patient states his been ongoing states there was indeed recommending and seem to be impacted. She has an appointment in 11 days with her dentist. Patient denies any known fevers chills she woke up with some swelling. She states that she took some Tylenol and ibuprofen. Patient denies any difficulty swallowing. Patient offers no complaints. - Related Data Previous Rx's Medication Instructions Recorded DULoxetine HCL [Cymbalta] 60 mg PO DAILY 28 Days capsule. 11/28/19 Melatonin 6 mg PO HS PRN 28 Days tablet 11/28/19 Ibuprofen [Motrin] 600 mg PO Q8HR PRN #20 tab 02/01/21 Penicillin V Potassium [Pen Vee K] 500 mg PO QID #40 tablet 02/01/21 Allergies Allergy/AdvReac Type Severity Reaction Status Date / Time opiates Allergy Rash/Hives Uncoded 02/01/21 11:44 Review of Systems ROS Statement: Those systems with pertinent positive or pertinent negative responses have been documented in the HPI. ROS Other: All systems not noted in ROS Statement are negative. Past Medical History Past Medical History: Asthma History of Any Multi-Drug Resistant Organisms: None Reported Additional Past Surgical History / Comment(s): abdominal surgery as Past Psychological History: Anxiety, Depression Smoking Status: Current every day smoker Past Alcohol Use History: None Reported Past Drug Use History: Marijuana General Exam General appearance: alert, in no apparent distress Head exam: Present: atraumatic, normocephalic, normal inspection Eye exam: Present: normal appearance, PERRL, EOMI. Absent: scleral icterus, conjunctival injection, periorbital swelling ENT exam: Present: mucous membranes moist, TM's normal bilaterally. Absent: normal oropharynx (16-17 dental impaction, no drainable abscess.) Neck exam: Present: normal inspection, full ROM. Absent: tenderness, meningismus, lymphadenopathy Respiratory exam: Present: normal lung sounds bilaterally. Absent: respiratory distress, wheezes, rales, rhonchi, stridor Cardiovascular Exam: Present: regular rate, normal rhythm, normal heart sounds. Absent: systolic murmur, diastolic murmur, rubs, gallop, clicks Course Vital Signs 02/01/21 11:43 Temperature 98.5 F Pulse Rate 87 Respiratory 18 Rate Blood Pressure 116/81 O2 Sat by Pulse 97 Oximetry Medical Decision Making - Medical Decision Making Patient which a dental infection, dentition impaction. She'll continue Tylenol Motrin return parameters were discussed. Disposition Clinical Impression: Dental infection, Dental impaction Disposition: HOME SELF-CARE Condition: Stable Instructions (If sedation given, give patient instructions): Toothache (ED) Additional Instructions: Please return to the Emergency Department if symptoms worsen or any other concerns. Prescriptions: Ibuprofen [Motrin] 600 mg PO Q8HR PRN #20 tab PRN Reason: Pain Penicillin V Potassium [Pen Vee K] 500 mg PO QID #40 tablet Is patient prescribed a controlled substance at d/c from ED?: No Referrals: Lisbeth Olivares MD [Primary Care Provider] - 1-2 days Time of Disposition: 12:35
[2021-02-01] MEDS ORDERED: BUPIVACAIN-EPI 0.5%-1:200,000 30 ML VIAL SQ STA (13:38)
[2021-02-01] MEDS ORDERED: BUPIVACAIN-EPI 0.25%-1:200,000 30 ML VIAL SQ STA (13:41)
--- NOTE | 2021-02-01 14:06 | ED ---
Disposition Clinical Impression: Dental infection, Dental impaction Disposition: HOME SELF-CARE Condition: Stable Instructions (If sedation given, give patient instructions): Toothache (ED) Additional Instructions: Please return to the Emergency Department if symptoms worsen or any other concerns. Prescriptions: Ibuprofen [Motrin] 600 mg PO Q8HR PRN #20 tab PRN Reason: Pain Penicillin V Potassium [Pen Vee K] 500 mg PO QID #40 tablet Is patient prescribed a controlled substance at d/c from ED?: No Referrals: Lisbeth Olivares MD [Primary Care Provider] - 1-2 days Procedures - Nerve Block Consent Obtained: verbal consent Local Anesthetic Used: MARCAINE 0.25% with EPI Amount of anesthesia used: 2 Side: left Intraoral Nerve Block: inferior alveolar Procedure Successful: Yes Complications: none Patient Tolerated Procedure: well, no complications
[2021-02-01 14:07] VITALS: BP 122/68; PULSE 77; RESP 20
== END 2021-02-01 14:06 | disposition home or self-care (01) ==
LOC: EC 11:40
DX: K04.7 Periapical abscess without sinus (principal); K01.1 Impacted teeth; F17.200 Nicotine dependence, unspecified, uncomplicated; Z88.5 Allergy status to narcotic agent
CPT/HCPCS: 64400; 99282

== ENCOUNTER 2021-04-06 23:18 | Emergency (ER) | payer OTHER ==
[2021-04-06 23:27] VITALS: TEMP 98.8
[2021-04-07] MEDS ORDERED: SODIUM CHLORIDE 0.9% 1,000 ML IV STA (00:04)
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
[2021-04-07 00:42] LABS: Partial Thromboplastin Time 23.2 sec (22.0-30.0); Prothrombin Time 10.3 sec (9.0-12.0)
[2021-04-07 00:47] LABS: ALT 12 U/L (4-34); AST 19 U/L (14-36); African American GFR (CKD) >90 (>60 ml/min/1.73 sqM); Albumin 4.3 g/dL (3.5-5.0); Alcohol <10 mg/dL; Alkaline Phosphatase 59 U/L (38-126); Anion Gap 10 mmol/L; Blood Urea Nitrogen 10 mg/dL (7-17); Calcium 9.5 mg/dL (8.4-10.2); Carbon Dioxide 21 mmol/L (22-30); Chloride 107 mmol/L (98-107); Creatine Kinase 239 U/L (30-135); Glucose 99 mg/dL (74-99); Non-African American GFR(CKD) >90 (>60 ml/min/1.73 sqM); Potassium 3.6 mmol/L (3.5-5.1); Sodium 138 mmol/L (137-145); Total Bilirubin 0.6 mg/dL (0.2-1.3); Total Protein 6.9 g/dL (6.3-8.2)
[2021-04-07 01:11] LABS: Basophils # (A) 0.1 k/uL (0-0.2); Basophils % (A) 1 %; Eosinophils # (A) 0.2 k/uL (0-0.7); Eosinophils % (A) 2 %; HCT 40.3 % (34.0-46.0); HGB 13.3 gm/dL (11.4-16.0); Lymphocytes # (A) 2.7 k/uL (1.0-4.8); Lymphocytes % (A) 21 %; MCH 28.9 pg (25.0-35.0); MCHC 33.1 g/dL (31.0-37.0); MCV 87.2 fL (80.0-100.0); Mean Platelet Volume 8.4; Monocytes # (A) 0.6 k/uL (0-1.0); Monocytes % (A) 5 %; Neutrophils # (A) 9.4 k/uL (1.3-7.7); Neutrophils % (A) 72 %; Platelet Count 215 k/uL (150-450); RBC 4.62 m/uL (3.80-5.40); RDW 13.8 % (11.5-15.5); WBC 13.2 k/uL (3.8-10.6)
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
--- NOTE | 2021-04-07 01:33 | XR ---
EXAM: XR Right Hip With Pelvis When Performed, 2 or 3 Views CLINICAL HISTORY: ITS.REASON XR Reason: pain TECHNIQUE: Two or three views of the right hip with pelvis when performed. COMPARISON: No relevant prior studies available. FINDINGS: Bones/joints: Unremarkable. No acute fracture. No dislocation. Soft tissues: Unremarkable. IMPRESSION: Normal right hip x-rays and pelvis.
[2021-04-07 02:35] VITALS: BP 112/60; PULSE 83; RESP 16
== END 2021-04-07 02:40 | disposition home or self-care (01) ==
LOC: EC 23:18
DX: M54.2 Cervicalgia (principal); M25.551 Pain in right hip; M25.552 Pain in left hip; J45.909 Unspecified asthma, uncomplicated; F17.200 Nicotine dependence, unspecified, uncomplicated; V89.2XXA Person injured in unspecified motor-vehicle accident, traffic, initial encounter; Y04.0XXA Assault by unarmed brawl or fight, initial encounter; Y92.410 Unspecified street and highway as the place of occurrence of the external cause; Y07.03 Male partner, perpetrator of maltreatment and neglect; Z88.5 Allergy status to narcotic agent
CPT/HCPCS: 96360; 86900; 86901; 80053; 82550; 84484; 85025; 85610; 85730; 86850; 73502; 73080; 71045; 72125; 70450; 99284; G0480; 80320

== ENCOUNTER 2021-06-07 09:44 | Emergency (ER) | payer OTHER ==
[2021-06-07 09:48] VITALS: RESP 18
[2021-06-07] MEDS ORDERED: ACETAMINOPHEN TAB 500 MG TAB PO STA (10:03)
--- NOTE | 2021-06-07 10:24 | ED ---
General Adult HPI - General Chief complaint: ENT Stated complaint: sore throat, fever, vomiting & STD check Time Seen by Provider: 06/07/21 09:50 Source: patient Mode of arrival: ambulatory Limitations: no limitations - History of Present Illness Initial comments: 26-year-old female with a past mental history of asthma presents to the emergency room for a chief complaint of fever. Patient states since yesterday she has not been feeling well. States she had a fever with body aches and chills. Patient also has a cough and congestion. Patient is also complaining of a sore throat. Patient also admits to nausea. Patient would also like STD testing because her boyfriend cheated on her. She denies any abdominal pain or vaginal discharge. Patient does not know whether she was exposed to an STD or not. Patient has no other complaints at this time including shortness of breath, chest pain, abdominal pain, headache, or visual changes. - Related Data Previous Rx's Medication Instructions Recorded Cephalexin [Keflex] 500 mg PO BID 7 Days #14 cap 06/07/21 Allergies Allergy/AdvReac Type Severity Reaction Status Date / Time opiates Allergy Rash/Hives Uncoded 06/07/21 11:08 Review of Systems ROS Statement: Those systems with pertinent positive or pertinent negative responses have been documented in the HPI. ROS Other: All systems not noted in ROS Statement are negative. Past Medical History Past Medical History: Asthma History of Any Multi-Drug Resistant Organisms: None Reported Additional Past Surgical History / Comment(s): abdominal surgery as infant Past Psychological History: Anxiety, Depression Smoking Status: Current every day smoker Past Alcohol Use History: None Reported Past Drug Use History: Marijuana General Exam Limitations: no limitations General appearance: alert Head exam: Present: atraumatic, normocephalic, normal inspection Eye exam: Present: normal appearance, PERRL, EOMI. Absent: scleral icterus, conjunctival injection, periorbital swelling ENT exam: Present: normal exam, normal oropharynx (Uvula midline, no tonsillar exudates bilaterally. Tonsillar pillars are symmetric.), mucous membranes moist, TM's normal bilaterally Neck exam: Present: normal inspection, full ROM. Absent: tenderness, mening ismus, lymphadenopathy Respiratory exam: Present: normal lung sounds bilaterally. Absent: respiratory distress, wheezes, rales, rhonchi, stridor Cardiovascular Exam: Present: regular rate, normal rhythm, normal heart sounds. Absent: systolic murmur, diastolic murmur, rubs, gallop, clicks GI/Abdominal exam: Present: soft, normal bowel sounds. Absent: distended, tenderness, guarding, rebound, rigid Neurological exam: Present: alert Course Vital Signs 06/07/21 09:45 Temperature 100.3 F H Pulse Rate 83 Respiratory 18 Rate Blood Pressure 106/71 O2 Sat by Pulse 98 Oximetry Medical Decision Making - Medical Decision Making Patient presents for upper respiratory symptoms and fever. Also wants STD testing given her boyfriend cheated on her. Vitals are stable. Patient has a low-grade fever of 100.3. Patient denies any history of IV drug abuse. Coronavirus today was negative as well as strep. Chest x-ray shows no acute pulmonary process. Urinalysis is contaminated with 156 squamous cells over patient will be treated for UTI with Keflex with culture pending given 128 white cells. Trichomonas day was negative. Gonorrhea and chlamydia pending. Patient does not have any STD symptoms, no abdominal tenderness. She refuses empiric treatment and would rather wait for results for gonorrhea and chlamydia. Given upper respiratory symptoms fever is likely related to viral illness. However discussed strict return parameters with the patient. She will return if she has any worsening symptoms. - Lab Data Lab Results 06/07/21 06/07/21 06/07/21 Range/Units 10:14 10:17 10:17 Urine Color Yellow Urine Appearance Turbid H (Clear) Urine pH 5.5 (5.0-8.0) Ur Specific [place] 1.031 (1.001-1.035) Urine Protein 1+ H (Negative) Urine Glucose (UA) Negative (Negative) Urine Ketones Trace H (Negative) Urine Blood Negative (Negative) Urine Nitrite Negative (Negative) Urine Bilirubin Negative (Negative) Urine Urobilinogen 2.0 (<2.0) mg/dL Ur Leukocyte Esterase Large H (Negative) Urine RBC 27 H (0-5) /hpf Urine WBC 128 H (0-5) /hpf Ur Squamous Epith Cells 156 H (0-4) /hpf Urine Bacteria Rare H (None) /hpf Urine Mucus Many H (None) /hpf Urine HCG, Qual Not Detected (Not Detectd) Coronavirus (PCR) (Not Detectd) Group A Strep Rapid Negative (Negative) Trichomonas Ag (Rapid) (Negative) 06/07/21 06/07/21 Range/Units 10:17 10:17 Urine Color Urine Appearance (Clear) Urine pH (5.0-8.0) Ur Specific [place] (1.001-1.035) Urine Protein (Negative) Urine Glucose (UA) (Negative) Urine Ketones (Negative) Urine Blood (Negative) Urine Nitrite (Negative) Urine Bilirubin (Negative) Urine Urobilinogen (<2.0) mg/dL Ur Leukocyte Esterase (Negative) Urine RBC (0-5) /hpf Urine WBC (0-5) /hpf Ur Squamous Epith Cells (0-4) /hpf Urine Bacteria (None) /hpf Urine Mucus (None) /hpf Urine HCG, Qual (Not Detectd) Coronavirus (PCR) Not Detected (Not Detectd) Group A Strep Rapid (Negative) Trichomonas Ag (Rapid) Negative (Negative) Disposition Clinical Impression: Cough, Fever, Viral pharyngitis Disposition: HOME SELF-CARE Condition: Good Instructions (If sedation given, give patient instructions): Acute Cough (ED) Additional Instructions: Take Motrin and Tylenol for fevers. Take antibiotic as directed. Please follow-up with your doctor in one to 2 days. If you have any worsening symptoms return to the emergency room. Prescriptions: Cephalexin [Keflex] 500 mg PO BID 7 Days #14 cap Is patient prescribed a controlled substance at d/c from ED?: No Time of Disposition: 11:01
--- NOTE | 2021-06-07 10:31 | XR ---
EXAMINATION TYPE: XR chest 2V DATE OF EXAM: 06/07/2021 COMPARISON: 04/07/2021 INDICATION: Cough, fever TECHNIQUE: Frontal and lateral views of the chest are obtained. FINDINGS: The heart size is normal. The pulmonary vasculature is normal. The lungs are clear. IMPRESSION: 1. No acute pulmonary process.
[2021-06-07 10:40] LABS: Appearance,Urine Turbid (Clear); Bacteria,Urine Rare /hpf; Bilirubin,Urine Negative (Negative); Blood,Urine Negative (Negative); Color,Urine Yellow; Glucose,Urine (UA) Negative (Negative); Ketones,Urine Trace (Negative); Leukocyte Esterase,Urine Large (Negative); Mucus,Urine Many /hpf; Nitrite,Urine Negative (Negative); PH, Urine 5.5 (5.0-8.0); Protein,Urine 1+ (Negative); RBC,Urine 27 /hpf (0-5); Specific Gravity,Urine 1.031 (1.001-1.035); Squamous Epithelial Cell,Urine 156 /hpf (0-4); WBC,Urine 128 /hpf (0-5)
[2021-06-07] MEDS: ONDANSETRON ODT 4 MG TAB PO STA ×2 (10:42→11:10)
[2021-06-07] MEDS ORDERED: CEPHALEXIN 500MG STARTER PACK 4 CAP BTL PO STA (11:03)
[2021-06-07] MEDS ORDERED: ONDANSETRON 4 MG ODT STARTER PACK 2 TAB BTL PO STA (11:07)
[2021-06-07 11:28] VITALS: BP 91/67; PULSE 77; TEMP 98.3
== END 2021-06-07 12:32 | disposition home or self-care (01) ==
LOC: EC 09:44
DX: J02.8 Acute pharyngitis due to other specified organisms (principal); B97.89 Other viral agents as the cause of diseases classified elsewhere; J45.909 Unspecified asthma, uncomplicated; F17.200 Nicotine dependence, unspecified, uncomplicated; F12.90 Cannabis use, unspecified, uncomplicated; Z88.5 Allergy status to narcotic agent
CPT/HCPCS: 81001; 81025; 87808; 87491; 87591; 87086; 87081; 87430; 87635; 71046; 99283; S0119

== ENCOUNTER 2024-07-19 21:40 | Emergency (ER) | payer OTHER ==
[2024-07-19 21:48] VITALS: RESP 16
[2024-07-19] MEDS: SODIUM CHLORIDE 0.9% 500 ML 500 ML IV ONE (22:39)
--- NOTE | 2024-07-19 22:39 | ED ---
Female Urogenital HPI - General Chief complaint: Vaginal Bleeding Stated complaint: 2 weeks preg., Bleeding Time Seen by Provider: 07/19/24 22:37 Source: patient, RN notes reviewed Mode of arrival: ambulatory Limitations: no limitations - History of Present Illness Initial comments: 29-year-old female presenting for vaginal bleeding during . Patient states about 1 hour ago she began to notice bleeding in her shorts and on the top paper when she wiped. She admits mild low back pain as well, denies abdominal pain or suprapubic pain. Last menstrual period was last week of April. She has first OB appointment in 4 days at [facility]. States she has 1 living child and 1 elective . - Related Data Previous Rx's Medication Instructions Recorded Cephalexin [Keflex] 500 mg PO BID 7 Days #14 cap 06/07/21 Allergies Allergy/AdvReac Type Severity Reaction Status Date / Time opiates Allergy Unknown Rash/Hives Uncoded 07/19/24 21:48 Review of Systems ROS Statement: Those systems with pertinent positive or pertinent negative responses have been documented in the HPI. ROS Other: All systems not noted in ROS Statement are negative. Past Medical History Past Medical History: Asthma History of Any Multi-Drug Resistant Organisms: None Reported Additional Past Surgical History / Comment(s): abdominal surgery as infant Past Psychological History: Anxiety, Depression Smoking Status: Current some day smoker Past Alcohol Use History: None Reported Past Drug Use History: Marijuana General Exam Limitations: no limitations General appearance: alert, in no apparent distress Head exam: Present: atraumatic, normocephalic, normal inspection Eye exam: Present: normal appearance, PERRL, EOMI. Absent: scleral icterus, conjunctival injection, periorbital swelling Respiratory exam: Present: normal lung sounds bilaterally. Absent: respiratory distress, wheezes, rales, rhonchi, stridor Cardiovascular Exam: Present: regular rate, normal rhythm, normal heart sounds. Absent: systolic murmur, diastolic murmur, rubs, gallop, clicks GI/Abdominal exam: Present: soft, normal bowel sounds. Absent: distended, tenderness, guarding, rebound, rigid Back exam: Absent: CVA tenderness (R), CVA tenderness (L) Neurological exam: Present: alert, oriented X3 Psychiatric exam: Present: normal affect, normal mood Skin exam: Present: warm, dry, intact, normal color. Absent: rash Course Vital Signs 07/19/24 07/20/24 21:43 00:43 Temperature 98.3 F 98.1 F Pulse Rate 90 78 Respiratory 16 16 Rate Blood Pressure 109/68 111/62 O2 Sat by Pulse 99 99 Oximetry Medical Decision Making - Medical Decision Making Was pt. sent in by a medical professional or institution (, MESSI, INDEX CLERK, urgent care, hospital, or correction...) When possible be specific @ -No Did you speak to anyone other than the patient for history (EMS, parent, family, police, friend...)? What history was obtained from this source @ -No Did you review nursing and triage notes (agree or disagree)? Why? @ -I reviewed and agree with nursing and triage notes Were old charts reviewed (outside hosp., previous admission, EMS record, old EKG, old radiological studies, urgent care reports/EKG's, correction records)? Report findings @ -No old charts were reviewed Differential Diagnosis (chest pain, altered mental status, abdominal pain women, abdominal pain men, vaginal bleeding, weakness, fever, dyspnea, syncope, headache, dizziness, GI bleed, back pain, seizure, CVA, palpatations, mental health, musculoskeletal)? @ -Differential Vaginal Bleeding: Spontaneous , threatened , molar , ectopic , bloody show, incompetent cervix, abruptioplacenta, placenta previa, uterine rupture, dysfunctional uterine bleeding, hemorrhage, uterine fibroids, this is not meant to be an all-inclusive list. EKG interpreted by me (3pts min.). @ -None X-rays interpreted by me (1pt min.). @ -None done CT interpreted by me (1pt min.). @ -None done U/S interpreted by me (1pt. min.). @ -Ultrasound reveals intrauterine gestational and yolk sac without visualization of pole What testing was considered but not performed or refused? (CT, X-rays, U/S, labs)? Why? @ -None What meds were considered but not given or refused? Why? @ -Patient refused RhoGAM after detailed discussion of importance, possible consequences of refusing Did you discuss the management of the patient with other professionals (professionals i.e. , MESSI, INDEX CLERK, lab, RT, psych nurse, community mental health social worker, glass technologist, teacher, commanding officer garage, casework supervisor)? Give summary @ -No Was smoking cessation discussed for >3mins.? @ -No Was critical care preformed (if so, how long)? @ -No Were there social determinants of health that impacted care today? How? (Homelessness, low income, unemployed, alcoholism, drug addiction, transportation, low edu. Level, literacy, decrease access to med. care, halfway, rehab)? @ -No Was there de-escalation of care discussed even if they declined (Discuss DNR or withdrawal of care, Hospice)? DNR status @ -No What co-morbidities impacted this encounter? (DM, HTN, Smoking, COPD, CAD, Cancer, CVA, ARF, Chemo, Hep., AIDS, mental health diagnosis, sleep apnea, morbid obesity)? @ -None Was patient admitted / discharged? Hospital course, mention meds given and route, prescriptions, significant lab abnormalities, going to OR and other pertinent info. @ -Patient was discharged. This is a 29-year-old female at approximately 4 weeks gestation presenting with vaginal bleeding x 1 hour prior to arrival. V ital signs within normal limits. Abdomen is soft and nontender to palpation. Lab work including CBC, CMP, lactic acid remarkable for incidental finding of low glucose of 58. Beta-hCG 21,039. Urine is contaminated with 13 squamous cells, unlikely bacteriuria however urine culture sent. Pelvic ultrasound revealed intrauterine gestational and yolk sac without visualization of pole. These findings were discussed with patient in detail. Discussed that these findings could represent early versus spontaneous miscarriage. As blood type is O-, I recommend RhoGAM today. After lengthy discussion of importance and possible consequences of refusing RhoGAM, patient refuses the Rho JAYNE injection. She states she will follow-up on Tuesday for her OB appointment at [facility]. Low glucose of 58 also discussed, pt ate meal while in ER. Return precautions discussed with patient in detail and she conveys understanding and agrees to plan. Case was discussed with my ED attending Dr. Robertson. Patient discharged in stable condition. Undiagnosed new problem with uncertain prognosis? @ -No Drug Therapy requiring intensive monitoring for toxicity (Heparin, Nitro, Insulin, Cardizem)? @ -No Were any procedures done? @ -No Diagnosis/symptom? @ -Threatened Acute, or Chronic, or Acute on Chronic? @ -Acute Uncomplicated (without systemic symptoms) or Complicated (systemic symptoms)? @ -Uncomplicated Side effects of treatment? @ -No Exacerbation, Progression, or Severe Exacerbation? @ -No Poses a threat to life or bodily function? How? (Chest pain, [place], [place], pneumonia, PE, COPD, DKA, ARF, appy, cholecystitis, CVA, Diverticulitis, Homicidal, Suicidal, threat to staff... and all critical care pts) @ -Not at this time - Lab Data Result diagrams: 07/19/24 22:22 07/19/24 22:22 Lab Results 07/19/24 07/19/24 07/19/24 Range/Units 22:22 22:22 22:22 WBC 8.6 (3.8-10.6) k/uL RBC 4.52 (3.80-5.40) m/uL Hgb 13.7 (11.4-16.0) gm/dL Hct 41.6 (34.0-46.0) % MCV 91.9 (80.0-100.0) fL MCH 30.3 (25.0-35.0) pg MCHC 33.0 (31.0-37.0) g/dL RDW 12.7 (11.5-15.5) % Plt Count 215 (150-450) k/uL MPV 7.8 Neutrophils % 66 % Lymphocytes % 21 % Monocytes % 7 % Eosinophils % 4 % Basophils % 1 % Neutrophils # 5.7 (1.3-7.7) k/uL Lymphocytes # 1.8 (1.0-4.8) k/uL Monocytes # 0.6 (0-1.0) k/uL Eosinophils # 0.4 (0-0.7) k/uL Basophils # 0.1 (0-0.2) k/uL PT 9.4 L (10.0-12.5) sec INR 0.8 (<1.2) APTT 24.4 (22.0-30.0) sec Sodium (137-145) mmol/L Potassium (3.5-5.1) mmol/L Chloride (98-107) mmol/L Carbon Dioxide (22-30) mmol/L Anion Gap mmol/L BUN (7-17) mg/dL Creatinine (0.52-1.04) mg/dL Est GFR (CKD-EPI)AfAm (>60 ml/min/1.73 sqM) Est GFR (CKD-EPI)NonAf (>60 ml/min/1.73 sqM) Glucose (74-99) mg/dL Calcium (8.4-10.2) mg/dL Total Bilirubin (0.2-1.3) mg/dL AST (14-36) U/L ALT (4-34) U/L Alkaline Phosphatase (38-126) U/L Total Protein (6.3-8.2) g/dL Albumin (3.5-5.0) g/dL HCG, Quant mIU/mL Urine Color Urine Appearance (Clear) Urine pH (5.0-8.0) Ur Specific Rogers (1.001-1.035) Urine Protein (Negative) Urine Glucose (UA) (Negative) Urine Ketones (Negative) Urine Blood (Negative) Urine Nitrite (Negative) Urine Bilirubin (Negative) Urine Urobilinogen (<2.0) mg/dL Ur Leukocyte Esterase (Negative) Urine RBC (0-5) /hpf Urine WBC (0-5) /hpf Ur Squamous Epith Cells (0-4) /hpf Amorphous Sediment (None) /hpf Urine Mucus (None) /hpf Urine HCG, Qual Detected (Not Detectd) Blood Type Blood Type Recheck Bld Type Recheck Status 07/19/24 07/19/24 07/19/24 Range/Units 22:22 22:22 22:30 WBC (3.8-10.6) k/uL RBC (3.80-5.40) m/uL Hgb (11.4-16.0) gm/dL Hct (34.0-46.0) % MCV (80.0-100.0) fL MCH (25.0-35.0) pg MCHC (31.0-37.0) g/dL RDW (11.5-15.5) % Plt Count (150-450) k/uL MPV Neutrophils % % Lymphocytes % % Monocytes % % Eosinophils % % Basophils % % Neutrophils # (1.3-7.7) k/uL Lymphocytes # (1.0-4.8) k/uL Monocytes # (0-1.0) k/uL Eosinophils # (0-0.7) k/uL Basophils # (0-0.2) k/uL PT (10.0-12.5) sec INR (<1.2) APTT (22.0-30.0) sec Sodium 136 L (137-145) mmol/L Potassium 4.0 (3.5-5.1) mmol/L Chloride 103 (98-107) mmol/L Carbon Dioxide 25 (22-30) mmol/L Anion Gap 8 mmol/L BUN 8 (7-17) mg/dL Creatinine 0.60 (0.52-1.04) mg/dL Est GFR (CKD-EPI)AfAm >90 (>60 ml/min/1.73 sqM) Est GFR (CKD-EPI)NonAf >90 (>60 ml/min/1.73 sqM) Glucose 58 L (74-99) mg/dL Calcium 9.2 (8.4-10.2) mg/dL Total Bilirubin 0.4 (0.2-1.3) mg/dL AST 16 (14-36) U/L ALT 14 (4-34) U/L Alkaline Phosphatase 61 (38-126) U/L Total Protein 6.5 (6.3-8.2) g/dL Albumin 4.0 (3.5-5.0) g/dL HCG, Quant 96492.0 mIU/mL Urine Color Yellow Urine Appearance Cloudy H (Clear) Urine pH 6.5 (5.0-8.0) Ur Specific Rogers 1.028 (1.001-1.035) Urine Protein Trace H (Negative) Urine Glucose (UA) Negative (Negative) Urine Ketones Negative (Negative) Urine Blood Small H (Negative) Urine Nitrite Negative (Negative) Urine Bilirubin Negative (Negative) Urine Urobilinogen <2.0 (<2.0) mg/dL Ur Leukocyte Esterase Negative (Negative) Urine RBC <1 (0-5) /hpf Urine WBC 8 H (0-5) /hpf Ur Squamous Epith Cells 13 H (0-4) /hpf Amorphous Sediment Rare H (None) /hpf Urine Mucus Occasional H (None) /hpf Urine HCG, Qual (Not Detectd) Blood Type O Negative Blood Type Recheck O Neg Bld Type Recheck Status No Disposition Clinical Impression: Threatened Disposition: HOME SELF-CARE Condition: Stable Instructions (If sedation given, give patient instructions): Threatened Miscarriage (ED) Additional Instructions: Please follow-up for appointment at [facility] on Tuesday. Please return to the Emergency Department if symptoms worsen or any other concerns. Is patient prescribed a controlled substance at d/c from ED?: No Referrals: None,Stated [Primary Care Provider] - 1-2 days Time of Disposition: 00:34
[2024-07-19 22:51] LABS: Basophils # (A) 0.1 k/uL (0-0.2); Basophils % (A) 1 %; Eosinophils # (A) 0.4 k/uL (0-0.7); Eosinophils % (A) 4 %; HCT 41.6 % (34.0-46.0); HGB 13.7 gm/dL (11.4-16.0); Lymphocytes # (A) 1.8 k/uL (1.0-4.8); Lymphocytes % (A) 21 %; MCH 30.3 pg (25.0-35.0); MCV 91.9 fL (80.0-100.0); Mean Platelet Volume 7.8; Monocytes # (A) 0.6 k/uL (0-1.0); Monocytes % (A) 7 %; Neutrophils # (A) 5.7 k/uL (1.3-7.7); Neutrophils % (A) 66 %; Platelet Count 215 k/uL (150-450); RBC 4.52 m/uL (3.80-5.40); RDW 12.7 % (11.5-15.5); WBC 8.6 k/uL (3.8-10.6)
[2024-07-19 22:53] LABS: Amorphous Sediment,Urine Rare /hpf; Appearance,Urine Cloudy (Clear); Bilirubin,Urine Negative (Negative); Blood,Urine Small (Negative); Color,Urine Yellow; Glucose,Urine (UA) Negative (Negative); Ketones,Urine Negative (Negative); Leukocyte Esterase,Urine Negative (Negative); Mucus,Urine Occasional /hpf; Nitrite,Urine Negative (Negative); PH, Urine 6.5 (5.0-8.0); Protein,Urine Trace (Negative); RBC,Urine <1 /hpf (0-5); Specific Gravity,Urine 1.028 (1.001-1.035); Squamous Epithelial Cell,Urine 13 /hpf (0-4); Urobilinogen,Urine <2.0 mg/dL (<2.0); WBC,Urine 8 /hpf (0-5)
[2024-07-19 23:02] LABS: ALT 14 U/L (4-34); AST 16 U/L (14-36); African American GFR (CKD) >90 (>60 ml/min/1.73 sqM); Alkaline Phosphatase 61 U/L (38-126); Anion Gap 8 mmol/L; Blood Urea Nitrogen 8 mg/dL (7-17); Calcium 9.2 mg/dL (8.4-10.2); Carbon Dioxide 25 mmol/L (22-30); Chloride 103 mmol/L (98-107); Glucose 58 mg/dL (74-99); INR 0.8 (<1.2); Non-African American GFR(CKD) >90 (>60 ml/min/1.73 sqM); Partial Thromboplastin Time 24.4 sec (22.0-30.0); Prothrombin Time 9.4 sec (10.0-12.5); Sodium 136 mmol/L (137-145); Total Bilirubin 0.4 mg/dL (0.2-1.3); Total Protein 6.5 g/dL (6.3-8.2)
--- NOTE | 2024-07-19 23:55 | US ---
EXAMINATION TYPE: Transabdominal DATE OF EXAM: 07/19/2024 11:39 PM COMPARISON: NONE CLINICAL INDICATION: Female, 29 years old with history of pain; Patient states vaginal bleeding duri ng , bright red blood. EXAM PERFORMED: Transvaginal (TV) and Transabdominal (TA) EXAM MEASUREMENTS: GESTATIONAL AGE / DATING Physician Established: Not yet established Dates by LMP: (11 weeks/3 days) EDC: 02/04/2025 Dates by First Scan: No previous this is first scan ( Dates by Current Scan for: Unable to date by today's study MATERNAL ANATOMY Uterus: 9.2 x 5.2 x 6.6cm. WNL as best seen Right Ovary: 3.2 x 1.8 x 2.0cm. There is a 1.4 x 1.1 x 1.3cm isoechoic area with peripheral vasculari ty, probable corpus luteum vs other. Left Ovary: 1.7 x 1.3 x 1.6cm. wnl Post CDS / Adnexa: WNL Presence of free fluid: Not seen Presence of corpus luteal cyst: Probable corpus luteum right ovary Presence of subchorionic bleed: Not seen GESTATION / SURVEY CRL: Not seen MSD: 2.15 (7 weeks/1 days) Yolk Sac (normal less than 6mm): 4mm Heart Rate: Not seen Gestational sac and yolk sac seen, however no pole visualized on todays scan Date of LMP: 04/30/2024 Beta HcG (if available): Not available at this time IMPRESSION: Abnormal study without visualization of pole. Findings could reflect too early to v isualize intrauterine versus spontaneous . Serial beta hCG and ultrasound follow-up is advised. [facility], , 07/19/2024 11:53 PM
[2024-07-20] MEDS: Rhogam IMMUNE GLOBULIN 1,500 UNIT/1 ML IM ONE (00:36)
[2024-07-20 00:45] VITALS: BP 111/62; PULSE 78; TEMP 98.1
== END 2024-07-20 00:45 | disposition home or self-care (01) ==
LOC: EC 21:40
CPT/HCPCS: 36415; 76801; 76817; 80053; 81001; 81025; 84702; 85025; 85610; 85730; 86900; 86901; 96360; 99284

== ENCOUNTER 2024-07-21 21:21 | Emergency (ER) | payer OTHER ==
[2024-07-21 21:32] VITALS: RESP 18; TEMP 98.6
--- NOTE | 2024-07-21 22:21 | ED ---
Female Urogenital HPI - General Chief complaint: Vaginal Bleeding Stated complaint: Vaginal Bleeding Time Seen by Provider: 07/21/24 22:19 Source: patient, RN notes reviewed Mode of arrival: ambulatory Limitations: no limitations - History of Present Illness Initial comments: 29-year-old female at approximately 4 weeks gestation presenting with vaginal bleeding x 2 days. Patient was seen in the ER 2 days for this complaint where an ultrasound was performed that did not show a pole in the gestational sac. Patient was instructed to follow-up in 2 days for serial hCGs. Patient reports that over the past day she has had increasing heaviness of the vaginal bleeding. States she is not bleeding more than 1 pad per hour. She also admits mild lower pelvic cramping and low back pain. Denies urinary symptoms. Has OB appointment Tuesday at [facility]. - Related Data Previous Rx's Medication Instructions Recorded Cephalexin [Keflex] 500 mg PO BID 7 Days #14 cap 06/07/21 Allergies Allergy/AdvReac Type Severity Reaction Status Date / Time opiates Allergy Unknown Rash/Hives Uncoded 07/21/24 21:32 Review of Systems ROS Statement: Those systems with pertinent positive or pertinent negative responses have been documented in the HPI. ROS Other: All systems not noted in ROS Statement are negative. Past Medical History Past Medical History: Asthma History of Any Multi-Drug Resistant Organisms: None Reported Additional Past Surgical History / Comment(s): abdominal surgery as infant Past Psychological History: Anxiety, Depression Smoking Status: Current every day smoker Past Alcohol Use History: None Reported Past Drug Use History: Marijuana General Exam Limitations: no limitations General appearance: alert, in no apparent distress Head exam: Present: atraumatic, normocephalic, normal inspection Respiratory exam: Present: normal lung sounds bilaterally. Absent: respiratory distress, wheezes, rales, rhonchi, stridor Cardiovascular Exam: Present: regular rate, normal rhythm, normal heart sounds. Absent: systolic murmur, diastolic murmur, rubs, gallop, clicks GI/Abdominal exam: Present: soft, normal bowel sounds. Absent: distended, tenderness, guarding, rebound, rigid Back exam: Absent: CVA tenderness (R), CVA tenderness (L) Neurological exam: Present: alert, oriented X3 Psychiatric exam: Present: normal affect, normal mood Skin exam: Present: warm, dry, intact, normal color. Absent: rash Course Vital Signs 07/21/24 07/21/24 21:31 23:32 Temperature 98.6 F Pulse Rate 82 86 Respiratory 18 18 Rate Blood Pressure 115/76 110/70 O2 Sat by Pulse 98 98 Oximetry Medical Decision Making - Medical Decision Making Was pt. sent in by a medical professional or institution (MESSI Stephens, RECORD CENTER COORDINATOR, urgent ca re, hospital, or skilled nursing...) When possible be specific @ -No Did you speak to anyone other than the patient for history (EMS, parent, family, police, friend...)? What history was obtained from this source @ -No Did you review nursing and triage notes (agree or disagree)? Why? @ -I reviewed and agree with nursing and triage notes Were old charts reviewed (outside hosp., previous admission, EMS record, old EKG, old radiological studies, urgent care reports/EKG's, skilled nursing records)? Report findings @ -No old charts were reviewed Differential Diagnosis (chest pain, altered mental status, abdominal pain women, abdominal pain men, vaginal bleeding, weakness, fever, dyspnea, syncope, he adache, dizziness, GI bleed, back pain, seizure, CVA, palpatations, mental health, musculoskeletal)? @ -Differential Vaginal Bleeding: Spontaneous , threatened , molar , ectopic , bloody show, incompetent cervix, abruptioplacenta, placenta previa, uterine rupture, dysfunctional uterine bleeding, hemorrhage, uterine fibroids, this is not meant to be an all-inclusive list. EKG interpreted by me (3pts min.). @ -None X-rays interpreted by me (1pt min.). @ -None done CT interpreted by me (1pt min.). @ -None done U/S interpreted by me (1pt. min.). @ -None done What testing was considered but not performed or refused? (CT, X-rays, U/S, labs)? Why? @ -Ultrasound considered however not performed due to patient had ultrasound 2 days ago with similar symptoms which revealed intrauterine gestational sac but no pole What meds were considered but not given or refused? Why? @ -None Did you discuss the management of the patient with other professionals (professionals i.e. MESSI Stephens, RECORD CENTER COORDINATOR, lab, RT, psych nurse, social service manager, retail field representative, teacher, unemployment insurance hearing officer, case filler)? Give summary @ -No Was smoking cessation discussed for >3mins.? @ -No Was critical care preformed (if so, how long)? @ -No Were there social determinants of health that impacted care today? How? (Homelessness, low income, unemployed, alcoholism, drug addiction, transportation, low edu. Level, literacy, decrease access to med. care, fpc, rehab)? @ -No Was there de-escalation of care discussed even if they declined (Discuss DNR or withdrawal of care, Hospice)? DNR status @ -No What co-morbidities impacted this encounter? (DM, HTN, Smoking, COPD, CAD, Cancer, CVA, ARF, Chemo, Hep., AIDS, mental health diagnosis, sleep apnea, morbid obesity)? @ -None Was patient admitted / discharged? Hospital course, mention meds given and route, prescriptions, significant lab abnormalities, going to OR and other pertinent info. @ -Patient was discharged. This is a 29-year-old female at approximately 4 weeks gestation presenting for vaginal bleeding x 2 days. Patient was seen in E R for same complaint 2 days ago where ultrasound was performed which revealed intrauterine gestational sac but no pole. Diagnosis of threatened discussed at this time and instructed to follow-up for repeat beta-hCG testing. Patient reports bleeding has persisted. Repeat lab work including CBC, CMP, lactic acid unremarkable, hemoglobin stable at 13.3. Beta hCG is 9110 which is decreased from 21,039 2 days ago. Findings were discussed with patient. Discussed likely diagnosis of spontaneous . Shared decision making with patient, decided to forego ultrasound as patient has a close follow- up with OB in 2 days. Patient states she feels stable for discharge and will r eturn with new or worsening symptoms. Strict return precautions discussed with patient and she is agreeable to plan. RhoGAM was given. Case was discussed with my ED attending Dr. Robertson. Patient discharged in stable condition. Undiagnosed new problem with uncertain prognosis? @ -No Drug Therapy requiring intensive monitoring for toxicity (Heparin, Nitro, Insulin, Cardizem)? @ -No Were any procedures done? @ -No Diagnosis/symptom? @ -Spontaneous Acute, or Chronic, or Acute on Chronic? @ -Acute Uncomplicated (without systemic symptoms) or Complicated (systemic symptoms)? @ -Uncomplicated Side effects of treatment? @ -No Exacerbation, Progression, or Severe Exacerbation? @ -No Poses a threat to life or bodily function? How? (Chest pain, [place], [place], pneumonia, PE, COPD, DKA, ARF, appy, cholecystitis, CVA, Diverticulitis, Homicidal, Suicidal, threat to staff... and all critical care pts) @ -Not at this time - Lab Data Result diagrams: 07/21/24 22:29 07/21/24 23:45 Lab Results 07/21/24 07/21/24 07/21/24 Range/Units 22:29 22:29 23:45 WBC 14.2 H (3.8-10.6) k/uL RBC 4.41 (3.80-5.40) m/uL Hgb 13.3 (11.4-16.0) gm/dL Hct 40.5 (34.0-46.0) % MCV 91.7 (80.0-100.0) fL MCH 30.3 (25.0-35.0) pg MCHC 33.0 (31.0-37.0) g/dL RDW 12.5 (11.5-15.5) % Plt Count 211 (150-450) k/uL MPV 7.8 Neutrophils % 86 % Lymphocytes % 9 % Monocytes % 3 % Eosinophils % 1 % Basophils % 1 % Neutrophils # 12.1 H (1.3-7.7) k/uL Lymphocytes # 1.3 (1.0-4.8) k/uL Monocytes # 0.4 (0-1.0) k/uL Eosinophils # 0.2 (0-0.7) k/uL Basophils # 0.1 (0-0.2) k/uL Sodium 139 (137-145) mmol/L Potassium 4.6 (3.5-5.1) mmol/L Chloride 112 H (98-107) mmol/L Carbon Dioxide 22 (22-30) mmol/L Anion Gap 5 mmol/L BUN 8 (7-17) mg/dL Creatinine 0.52 (0.52-1.04) mg/dL Est GFR (CKD-EPI)AfAm >90 (>60 ml/min/1.73 sqM) Est GFR (CKD-EPI)NonAf >90 (>60 ml/min/1.73 sqM) Glucose 85 (74-99) mg/dL Calcium 9.0 (8.4-10.2) mg/dL Total Bilirubin 0.4 (0.2-1.3) mg/dL AST 19 (14-36) U/L ALT 17 (4-34) U/L Alkaline Phosphatase 56 (38-126) U/L Total Protein 6.3 (6.3-8.2) g/dL Albumin 3.9 (3.5-5.0) g/dL HCG, Quant 9110.1 mIU/mL Disposition Clinical Impression: Spontaneous Disposition: HOME SELF-CARE Condition: Stable Instructions (If sedation given, give patient instructions): Miscarriage (ED) Additional Instructions: Follow-up for OB appointment on Tuesday. Please return to the Emergency Department if symptoms worsen or any other concerns. Is patient prescribed a controlled substance at d/c from ED?: No Referrals: None,Stated [Primary Care Provider] - 1-2 days Time of Disposition: 01:29
[2024-07-21] MEDS: SODIUM CHLORIDE 0.9% 1,000 ML IV STA (22:33)
[2024-07-21 22:38] LABS: Basophils # (A) 0.1 k/uL (0-0.2); Basophils % (A) 1 %; Eosinophils # (A) 0.2 k/uL (0-0.7); Eosinophils % (A) 1 %; HCT 40.5 % (34.0-46.0); HGB 13.3 gm/dL (11.4-16.0); Lymphocytes # (A) 1.3 k/uL (1.0-4.8); Lymphocytes % (A) 9 %; MCH 30.3 pg (25.0-35.0); MCV 91.7 fL (80.0-100.0); Mean Platelet Volume 7.8; Monocytes # (A) 0.4 k/uL (0-1.0); Monocytes % (A) 3 %; Neutrophils # (A) 12.1 k/uL (1.3-7.7); Neutrophils % (A) 86 %; Platelet Count 211 k/uL (150-450); RBC 4.41 m/uL (3.80-5.40); RDW 12.5 % (11.5-15.5); WBC 14.2 k/uL (3.8-10.6)
[2024-07-22 00:16] VITALS: BP 110/70; PULSE 86
[2024-07-22 00:30] LABS: ALT 17 U/L (4-34); AST 19 U/L (14-36); African American GFR (CKD) >90 (>60 ml/min/1.73 sqM); Albumin 3.9 g/dL (3.5-5.0); Alkaline Phosphatase 56 U/L (38-126); Anion Gap 5 mmol/L; Blood Urea Nitrogen 8 mg/dL (7-17); Carbon Dioxide 22 mmol/L (22-30); Chloride 112 mmol/L (98-107); Glucose 85 mg/dL (74-99); Non-African American GFR(CKD) >90 (>60 ml/min/1.73 sqM); Potassium 4.6 mmol/L (3.5-5.1); Sodium 139 mmol/L (137-145); Total Bilirubin 0.4 mg/dL (0.2-1.3); Total Protein 6.3 g/dL (6.3-8.2)
[2024-07-22] MEDS ORDERED: Rhogam IMMUNE GLOBULIN 1,500 UNIT/1 ML IM ONE (01:28)
== END 2024-07-22 03:06 | disposition left against medical advice (07) ==
LOC: EC 21:21
CPT/HCPCS: 36415; 80053; 84702; 85025; 96360; 99284

== ENCOUNTER 2024-11-23 22:02 | Emergency (ER) | payer OTHER ==
--- NOTE | 2024-11-23 22:35 | ED ---
General Adult HPI - General Chief complaint: Skin/Abscess/Foreign Body Stated complaint: Abscess on Leg Time Seen by Provider: 11/23/24 22:12 Source: patient, RN notes reviewed Mode of arrival: ambulatory Limitations: no limitations - History of Present Illness Initial comments: 29-year-old female presents to the emergency department for evaluation of a bscess on her right leg. She states that she thought there was an ingrown hair on her leg. She states that today it became more red and swollen. She reports drainage from the area today. She reports being ill with upper respiratory symptoms and a fever 2 weeks ago but has not had a fever recently. Admits to tobacco use and marijuana use. - Related Data Previous Rx's Medication Instructions Recorded Cephalexin [Keflex] 500 mg PO BID 7 Days #14 cap 06/07/21 Cephalexin [Keflex] 500 mg PO Q6HR #36 cap 11/23/24 Sulfamethox-Tmp 800-160Mg [Bactrim 1 each PO Q12HR #18 tab 11/23/24 Ds] Allergies Allergy/AdvReac Type Severity Reaction Status Date / Time opiates Allergy Unknown Rash/Hives Uncoded 07/21/24 21:32 Review of Systems ROS Statement: Those systems with pertinent positive or pertinent negative responses have been documented in the HPI. ROS Other: All systems not noted in ROS Statement are negative. Past Medical History Past Medical History: Asthma History of Any Multi-Drug Resistant Organisms: None Reported Additional Past Surgical History / Comment(s): abdominal surgery as Past Psychological History: Anxiety, Depression Smoking Status: Current every day smoker Past Alcohol Use History: None Reported Past Drug Use History: Marijuana General Exam Limitations: no limitations General appearance: alert, in no apparent distress Head exam: Present: atraumatic, normocephalic, normal inspection Course Vital Signs 11/23/24 11/23/24 22:03 22:53 Temperature 99.5 F 99.2 F Pulse Rate 118 H 112 H Respiratory 20 16 Rate Blood Pressure 110/67 106/72 O2 Sat by Pulse 99 100 Oximetry Medical Decision Making - Medical Decision Making Was pt. sent in by a medical professional or institution (, PA, [employer], urgent care, hospital, or retirement...) When possible be specific @ -No Did you speak to anyone other than the patient for history (EMS, parent, family, police, friend...)? What history was obtained from this source @ -No Did you review nursing and triage notes (agree or disagree)? Why? @ -I reviewed and agree with nursing and triage notes Were old charts reviewed (outside hosp., previous admission, EMS record, old EKG, old radiological studies, urgent care reports/EKG's, retirement records)? Report findings @ -No old charts were reviewed Differential Diagnosis (chest pain, altered mental status, abdominal pain women, abdominal pain men, vaginal bleeding, weakness, fever, dyspnea, syncope, heada dariel, dizziness, GI bleed, back pain, seizure, CVA, palpatations, mental health, musculoskeletal)? @ -Abscess, cellulitis, abrasion, this list is not all inclusive EKG interpreted by me (3pts min.). @ -None X-rays interpreted by me (1pt min.). @ -None done CT interpreted by me (1pt min.). @ -None done U/S interpreted by me (1pt. min.). @ -None done What testing was considered but not performed or refused? (CT, X-rays, U/S, labs)? Why? @ -None What meds were considered but not given or refused? Why? @ -Tetanus shot considered patient refused Did you discuss the management of the patient with other professionals (professionals i.e. , PA, [employer], lab, RT, psych nurse, social sciences professor, supervisor [employer], teacher, community services officer, showcase trimmer)? Give summary @ -No Was smoking cessation discussed for >3mins.? @ -No Was critical care preformed (if so, how long)? @ -No Were there social determinants of health that impacted care today? How? (Homelessness, low income, unemployed, alcoholism, drug addiction, transportation, low edu. Level, literacy, decrease access to med. care, snf, rehab)? @ -No Was there de-escalation of care discussed even if they declined (Discuss DNR or withdrawal of care, Hospice)? DNR status @ -No What co-morbidities impacted this encounter? (DM, HTN, Smoking, COPD, CAD, Cancer, CVA, ARF, Chemo, Hep., AIDS, mental health diagnosis, sleep apnea, morbid obesity)? @ -None Was patient admitted / discharged? Hospital course, mention meds given and route, prescriptions, significant lab abnormalities, going to OR and other pertinent info. @ -Discharge. Patient presented the emergency department for evaluation of abscess on her right leg. The area is draining, wound culture was obtained the area was swabbed and sent for a wound culture. Patient will be started on Keflex and Bactrim. Initial dose and starter pack provided in the ED. Prescription sent to the patient's pharmacy. Tetanus shot was considered but the patient refused. Patient will be discharged home. Strict return precautions discussed. She is understanding agreeable plan. Patient stable at time of discharge. Case discussed with Dr. Quevedo. Undiagnosed new problem with uncertain prognosis? @ -No Drug Therapy requiring intensive monitoring for toxicity (Heparin, Nitro, Insulin, Cardizem)? @ -No Were any procedures done? @ -No Diagnosis/symptom? @ -Abscess Acute, or Chronic, or Acute on Chronic? @ -Acute Uncomplicated (without systemic symptoms) or Complicated (systemic symptoms)? @ -Uncomplicated Side effects of treatment? @ -No Exacerbation, Progression, or Severe Exacerbation? @ -No Poses a threat to life or bodily function? How? (Chest pain, [place], [place], pneumonia, PE, COPD, DKA, ARF, appy, cholecystitis, CVA, Diverticulitis, Homicidal, Suicidal, threat to staff... 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 Follow up with your primary care provider. Return to the emergency department for new or worsening symptoms. Prescriptions: Sulfamethox-Tmp 800-160Mg [Bactrim Ds] 1 each PO Q12HR #18 tab Cephalexin [Keflex] 500 mg PO Q6HR #36 cap Is patient prescribed a controlled substance at d/c from ED?: No Referrals: None,Stated [Primary Care Provider] - 1-2 days
[2024-11-23] MEDS: SULFAMETHOX-TMP 800-160MG 1 EACH TAB PO STA (22:45)
[2024-11-23] MEDS: CEPHALEXIN 500 MG CAP PO STA (22:45)
[2024-11-23] MEDS: SULFAMETH-TMP DS STARTER PACK 2 TAB BTL PO STA (22:46)
[2024-11-23] MEDS: CEPHALEXIN 500MG STARTER PACK 4 CAP BTL PO STA (22:46)
[2024-11-23] MEDS: DIPH,PERTUS(ACELL)TETVAC-LF 0.5 ML VIAL IM ONE (22:52)
[2024-11-23 22:54] VITALS: BP 106/72; PULSE 112; RESP 16; TEMP 99.2
== END 2024-11-23 22:54 | disposition home or self-care (01) ==
LOC: EC 22:02
DX: L02.415 Cutaneous abscess of right lower limb (principal); F17.200 Nicotine dependence, unspecified, uncomplicated; Z88.5 Allergy status to narcotic agent; Z23 Encounter for immunization
CPT/HCPCS: 87070; 87077; 87186; 87205; 90471; 99282